=== PATIENT | female | born 1935 | race Caucasian/White ===

== ENCOUNTER 2016-11-15 07:27 | Inpatient (IN) | payer MEDICARE, OTHER ==
[~2016-11-15] VITALS: Ht 160 cm; Wt 55.1 kg
--- NOTE | ~2016-11-15 | PR ---
[place], [place] PROGRESS NOTE NAME: RICKEY BOSS [facility] #: [id number] UNIT #: [id number] ROOM: 411 DOCTOR: MEI PAULSON MD BIRTHDATE: [birth year] DOS: CARDIOLOGY PROGRESS NOTE SUBJECTIVE: The patient was seen at her bedside today with family in attendance. She states that she has continued to have episodic weakness in the hospital. Review of her monitor strip shows sinus rhythm throughout. She has not had any significant tachy or donna arrhythmias nor has she had any pauses. She still has pain in her left chest, which is easily reproducible by palpation of her anterior chest and shoulder. Troponin levels have been unremarkable. PHYSICAL EXAMINATION: VITAL SIGNS: Today, her pulse is 72 and regular, blood pressure 138/55. She is afebrile. NECK: Supple. She has no jugular distention. Carotids are full. LUNGS: Respirations are unlabored. Her chest is clear to auscultation and percussion. She has no presacral edema. HEART: Has a regular rhythm without murmurs, rubs or gallops. ABDOMEN: Soft and normally active without masses, organomegaly or bruits. EXTREMITIES: Showed no edema. IMPRESSION: 1. Atypical chest pain, most likely musculoskeletal in origin. 2. Episodic weakness. Workup in progress. 3. Hypoglycemia prior to admission. Etiology not known. PLAN: We will await her echocardiogram. No other cardiac evaluation is planned at this time. I did discuss the possibility of a stress test with the patient, but she preferred to await the results of other testings first. I thank the hospitalist group for asking our advice regarding her care. MEI PAULSON MD CM:PNTRANS [phone] MEI PAULSON MD 11/17/16 0257 interface
--- NOTE | ~2016-11-15 | CON ---
[place], [place] RE[id number] UN[facility] #: [id number] ROOM: 411 DOCTOR: MEI PAULSON MD BIRTHDATE: [birth year] DOS: 11/15/2016 CARDIOLOGY CONSULTATION REASON FOR CONSULTATION: Chest pain. HISTORY OF PRESENT ILLNESS: The patient is an 81-year-old woman who has no previously documented history of heart disease. She was hospitalized in July 2016 with generalized weakness and inability to ambulate, associated with nausea, vomiting, dehydration and dysphagia. She was hydrated and improved, but still did not regain her normal strength. She was discharged to a long term and eventually to her home but continues to feel poorly. She states that she does have episodes where she becomes very weak and often confused. She was seen at her primary care office where she was noted to be hypoglycemic, even though she is not on any diabetes medications. She was started on steroids by mouth without much improvement. Today, she stated that she felt bad "all over." She states that everything hurt in addition to which she began having facial flushing, elevated blood pressure, tingling of her lips and swelling of her tongue with difficulty swallowing. She also had abdominal and chest pains. She told the ER staff that she felt that her left leg and left arm were heavy and weak. Her electrocardiogram showed no evidence for an acute myocardial infarction, but there was a concern that this could represent acute coronary ischemia. She was placed on nitroglycerin and hospitalized. Since she was hospitalized she states that she does feel somewhat better, although she still feels generally weak. Her cardiac biomarkers show normal total CK and MB levels. Her troponin is measurable but not above acceptable limits. PAST MEDICAL HISTORY: 1. Anxiety. 2. History of diverticulitis. 3. Generalized weakness. 4. Gastroesophageal reflux disease. 5. Hyperlipidemia. 6. 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 7. History of appendectomy, hysterectomy, oophorectomy, and spinal surgery. REVIEW OF SYSTEMS: The patient denies diplopia. She feels generally weak, but denies focal weakness. She denies loss of consciousness. She denies fevers, chills or sweats. She thinks she is losing weight because her appetite is poor. She denies orthopnea or PND. She does note that she occasionally gets a pounding in her head, which she associates with high blood pressure. She does get a pounding in her chest, but denies true chest pain. She does have chest wall tenderness. She denies bleeding from her stools or urine. She denies any peripheral edema. She denies any skin rashes. The remainder of the review of systems is negative except as noted above. MEDICATIONS: Prior to admission, Flovent 2 puffs b.i.d., Fosamax 35 mg weekly, calcium carbonate 500 mg b.i.d., vitamin D3 of 1000 units daily, hydrocodone with acetaminophen q.4 hours p.r.n., lorazepam 0.5 mg t.i.d., meloxicam 7.5 mg daily, Centrum Silver 1 tablet daily, omega 3 fish oil 1000 mg b.i.d., [place], [place] REPORT OF CONSULTATION NAME: RICKEY BOSS UNIT #: [id number] ROOM: [facility] DOCTOR: MEI PAULSON MD BIRTHDATE: [birth year] omeprazole 40 mg daily, polyethylene glycol 17 g b.i.d., pravastatin 10 mg at bedtime, Florastor 250 mg daily, tramadol 50 mg t.i.d. and conjugated estrogens per vagina one applicator weekly. ALLERGIES: PENICILLINS, DULOXETINE, LATEX AND PREDNISONE. FAMILY HISTORY: Her mother at age 60 of natural causes. Her father in his 60s of heart failure. SOCIAL HISTORY: The patient does not consume alcohol and has never smoked. PHYSICAL EXAMINATION: GENERAL: The patient is an anxious appearing white female who is awake, alert and oriented. VITAL SIGNS: Pulse is 68 and regular; blood pressure is 119/56. She is afebrile. She weighs 55.1 kilograms with a body mass index of 21.5 HEENT: Normocephalic, atraumatic. Extraocular muscles are intact. Sclerae are clear. Pupils are equal, round and reactive to light. The oral mucosa is moist. Tongue is midline. NECK: Supple. She has no jugular distention. Carotids are full. I heard no bruits. She had no neck or supraclavicular masses and no thyromegaly. RESPIRATORY: Respirations are unlabored. CHEST: Her chest is clear to auscultation and percussion. She has no presacral edema or chest wall tenderness. CARDIOVASCULAR: Her heart has a regular rhythm. She has no murmurs, rubs or gallops. The PMI is not displaced. There is no precordial heaves, lift or thrill. Palpation of her left anterior chest does reproduce some of her pains and she does have a tender spot in the fourth intercostal space on the left side of her chest. ABDOMEN: Soft and normally active without masses, organomegaly or bruits. EXTREMITIES: Showed no edema. Peripheral pulses are easily palpated in her feet bilaterally. LABORATORY DATA: I reviewed her electrocardiogram, which shows sinus rhythm with nonspecific ST and T-wave changes, but no acute ST elevation or depression. Serial troponin levels have been 0.015, 0.041 and 0.028. TSH in July was normal. Her total cholesterol in July was 137 with an LDL of 50 and an HDL of 64, total protein is 7.9 with albumin 4.0. Hemoglobin is 14.5 with hematocrit 42.7. There are 11,300 white cells and 320,000 platelets present. Sodium is 140, potassium 4.0, BUN 17, creatinine 0.68, sugar is 107 in the hospital, her A1c is 5.7. IMPRESSIONS: 1. Atypical chest pain. The patient was sore, "all over" and did not specifically complain of chest pain on admission. She does have a sore spot on her left anterior chest, which reproduces some of her pains. Her electrocardiogram shows no acute changes and her cardiac biomarkers are unremarkable. 2. History of malnutrition. 3. Episodic hypertension, possibly related to stress and her recent steroid [place], [place] RE[id number] UNIT #: [id number] ROOM: 411 DOCTOR: MEI PAULSON MD BIRTHDATE: [birth year] replacement. 4. Anxiety and depression apparent on exam. PLAN: I will be reviewing further cardiac biomarkers and we will obtain an echocardiogram. If her left ventricular wall motion and systolic function are normal, I do not believe that any further cardiac testing at this time would be fruitful. I thank the hospitalist group for asking our advice regarding her care. MEI PAULSON MD CM:CONSTR:REPORT OF CONSULTATION 29 11/16/16 1613 interface
--- NOTE | ~2016-11-15 | EKG ---
[place], [place] ELECTROCARDIOGRAM REPORT NAME: RICKEY BOSS UNIT #: [id number] ROOM: 411 DOCTOR: MEI PAULSON MD BIRTHDATE: [birth year] DOS: 11/15/2016 STUDY DONE: 11/15/2016 at 0735 in the morning. Sinus rhythm at a rate of 74. Nonspecific lateral ST and T wave changes. Abnormal EKG. MEI PAULSON MD CM:EKGRPT:ELECTROCARDIOGRAM REPORT [id number] MEI PAULSON MD
--- NOTE | ~2016-11-15 | PR ---
[place], [place] PROGRESS NOTE NAME: RICKEY BOSS [facility] #: [id number] UNIT #: [id number] ROOM: 411 DOCTOR: MAXIMUS GEIGER MD BIRTHDATE: [birth year] DOS: 11/17/2016 SUBJECTIVE: The patient is sitting up in bed, does not appear in any distress, continued to feel ____ weak, having no energy. No chest heaviness, jaw pain. No symptomatic palpitation. No dizziness, lightheadedness, or near-syncope. OBJECTIVE: VITAL SIGNS: Blood pressure 120/50, heart rate 59, respiratory rate of 14, temperature 97.4. NECK: Good upstroke, no bruit. HEART: S1, S2 with no rub. CHEST: With significant reproducible chest pain at the left side over the fourth and fifth ribs. ABDOMEN: Soft, nontender, present bowel sounds. No masses, no bruits. EXTREMITIES: Lower extremities, no edema. Faint distal pulses. LABORATORY DATA: White count 7.4, hemoglobin 11.7. Potassium 4.0, creatinine 0.5. AST is 20. Troponin less than 0.015. CPK-MB 2.4, CK is 25. Both are negative x 4. T4 of 1.03. Cortisol 6.22. TSH is 3.03. ASSESSMENT AND PLAN: Presentation with weakness that appears to have no specific cardiac complaints, today the patient has significant chest pain over the left breast and fourth and fifth ribs. Case discussed with Dr. Gonzáles who was present during this examination and further investigation with a left rib series is advised. The patient already scheduled by Dr. Payne for echo. Today, she agreed for a walking stress test which both can be scheduled as an outpatient should the patient deemed to be discharged over the weekend. Early follow up with Dr. Payne within 1-2 weeks as an outpatient is advised upon discharge. No further recommendation from the heart point of view. Consider, though, a sed rate along with GLORY to complete the workup. MAXIMUS GEIGER MD CM:PNTRANS [id number] MAXIMUS GEIGER MD 11/17/16 1616 interface
[~2016-11-15 07:27] MED LIST: ACETAMINOPHEN-H1 TA2 PO; ALENDRONATE SOD35 M1 PO; ATIVAN1 MG PO; CENTRUM SILVER1 EACH PO; CEPHALEXIN500 M1 PO; CODEINE-GUAIFE120 ML PO; FISH OIL500 M1 PO; FISH OIL500 M2 PO; FLOVENT HFA10.6 GM IH; GUAIFENESIN W PO; LEVAQUIN500 M2 PO; MOBIC7.5 MG PO; OYSTER SHELL 51 EACH PO; PAZEO2.5 ML OP; POLYETHYLE17 GM/Dose PO; PRAVASTATIN SOD10 MG PO; PREMARIN V0.625 MG/G V; PRILOSEC40 M1 PO; PROAIR HFA8.5 GM INH; PROBIOTIC250 MG PO; PYRIDIUM100 MG PO; TRAMADOL HCL50 MG PO; [UNRECOGNIZED DRUG - OTHER] PO
[2016-11-15 07:38] VITALS: BP 220/104
[2016-11-15] MEDS ORDERED: PAZEO2.5 ML OP (07:57)
[2016-11-15] MEDS ORDERED: CENTRUM SILVER1 EACH PO (07:57)
[2016-11-15] MEDS ORDERED: FISH OIL 1,001000 MG PO (07:58)
[2016-11-15] MEDS ORDERED: FLORASTOR250 MG PO (07:59)
[2016-11-15] MEDS ORDERED: FLOVENT HFA10.6 GM IH (07:59)
[2016-11-15] MEDS ORDERED: Oscal,Oyster S500 MG PO (08:00)
[2016-11-15] MEDS ORDERED: PRILOSEC20 M1 PO (08:00)
[2016-11-15] MEDS ORDERED: PREMARIN V0.625 MG/G V (08:00)
[2016-11-15] MEDS ORDERED: PRAVACHOL20 MG PO (08:02)
[2016-11-15] MEDS ORDERED: MIRALAX POWDER255 G1 PO (08:02)
[2016-11-15] MEDS ORDERED: FOSAMAX70 M1 PO (08:03)
[2016-11-15] MEDS ORDERED: HYDROCODONE BIT1 T11 PO (08:04)
[2016-11-15] MEDS ORDERED: ULTRAM50 MG PO (08:04)
[2016-11-15] MEDS ORDERED: MOBIC7.5 MG PO (08:04)
[2016-11-15] MEDS ORDERED: ATIVAN0.5 MG PO (08:04)
[2016-11-15] MEDS ORDERED: PYRIDIUM100 MG PO (08:05)
[2016-11-15] MEDS ORDERED: GUAIFEN/CODEIN120 ML PO (08:06)
[2016-11-15] MEDS ORDERED: VITAMIN D31000 IU PO (08:07)
[2016-11-15 08:19] LABS: BASO % 0.2 % (0.0-1.0); HEMATOCRIT 42.7 % (37.0-47.0); HEMOGLOBIN 14.5 g/dl (12.0-16.0); IG # 0.1 10*3/uL (0.0-0.1); LYMPH # 1.4 10*3/uL (1.3-4.4); MEAN CELL VOLUME 92.6 fl (81.0-99.0); MEAN CORPUSCULAR HGB 31.5 pg (27.0-31.0); MONO # 0.9 10*3/uL (0.1-1.0); MONO % 7.8 % (3.0-9.0); NEUT % 79.1 % (47.0-73.0); PLATELET COUNT AUTOMATED 320 10*3/uL (130-400); RED BLOOD COUNT 4.61 10*6/uL (4.10-5.10); RED CELL DISTRI WIDTH 12.9 % (0-14.5); WHITE BLOOD COUNT 11.3 10*3/uL (4.8-10.8)
[2016-11-15 08:36] LABS: ALKALINE PHOSPHATASE 90 U/L (45-117); BILIRUBIN, TOTAL 0.3 mg/dl (0.2-1.0); BUN 17 mg/dl (7-24); CARBON DIOXIDE 27 mmol/L (21-32); CHLORIDE 102 mmol/L (98-107); CPK 39 U/L (26-192); EST GLOM FILT AFRICAN AMERICAN > 60 ml/min; GLUCOSE 107 mg/dL (65-99); SGOT/AST 20 IU/L (3-35); SGPT/ALT 20 U/L (12-78); SODIUM 140 mmol/L (136-145); TOTAL PROTEIN 7.9 gm/dL (6.4-8.2)
[2016-11-15 08:38] LABS: TROPONIN I < 0.015 ng/ml (<0.045)
[2016-11-15 09:54] VITALS: BP 168/70
[2016-11-15 10:41] LABS: BILIRUBIN NEGATIVE (NEGATIVE); BLOOD NEGATIVE (NEGATIVE); CLARITY CLEAR (CLEAR); COLOR YELLOW (YELLOW); GLUCOSE NEGATIVE (NEGATIVE); KETONE NEGATIVE (NEGATIVE); LEUKO ESTERASE NEGATIVE (NEGATIVE); NITRITE NEGATIVE (NEGATIVE); PH 7.5 (5.0-9.0); PROTEIN NEGATIVE (NEGATIVE); SPECIFIC GRAVITY 1.015 (1.005-1.030); UROBILINOGEN 0.2 E.U./dl (0.2-1.0)
[2016-11-15 10:45] VITALS: BP 144/62
[2016-11-15 10:49] LABS: BACTERIA 1+
[2016-11-15 10:50] LABS: EPITHELIAL CELLS 0-2; RBC 0-2 rbc/hpf (0-2); URINE REFLEX COMMENT NO (NO); WBC 0-2 wbc/hpf (0-5)
[2016-11-15 12:00] VITALS: BP 144/61; BP 144/62
[2016-11-15 12:11] LABS: CKMB 1.8 ng/ml (0.5-3.6); TROPONIN I 0.041 ng/ml (<0.045)
[2016-11-15 16:00] VITALS: BP 119/56
[2016-11-15 18:12] LABS: CKMB 1.8 ng/ml (0.5-3.6); TROPONIN I 0.028 ng/ml (<0.045)
[2016-11-16] VITALS: BP 125/51
[2016-11-16 00:46] LABS: CKMB 2.4 ng/ml (0.5-3.6); TROPONIN I 0.019 ng/ml (<0.045)
[2016-11-16 06:27] LABS: BASO % 0.4 % (0.0-1.0); EOS # 0.1 10*3/uL (0.0-0.4); EOS % 1.9 % (1.0-4.0); LYMPH # 2.8 10*3/uL (1.3-4.4); LYMPH % 37.6 % (27.0-41.0); MEAN CELL VOLUME 95.5 fl (81.0-99.0); MEAN CORPUSCULAR HGB CONC 32.5 g/dl (33.0-37.0); MONO % 12.8 % (3.0-9.0); NEUT # 3.5 10*3/uL (2.3-7.9); NEUT % 46.9 % (47.0-73.0); PLATELET COUNT AUTOMATED 255 10*3/uL (130-400); RED BLOOD COUNT 3.77 10*6/uL (4.10-5.10); RED CELL DISTRI WIDTH 13.2 % (0-14.5); WHITE BLOOD COUNT 7.4 10*3/uL (4.8-10.8)
[2016-11-16 06:29] LABS: HEMOGLOBIN 11.7 g/dl (12.0-16.0)
[2016-11-16 07:04] LABS: INTERNATIONAL NORM RATIO 0.9 (2.0-3.5)
[2016-11-16 07:05] LABS: BUN 18 mg/dl (7-24); CARBON DIOXIDE 33 mmol/L (21-32); CHLORIDE 102 mmol/L (98-107); EST GLOM FILT AFRICAN AMERICAN > 60 ml/min; GLUCOSE 78 mg/dL (65-99); SODIUM 140 mmol/L (136-145)
[2016-11-16 07:10] LABS: FOLIC ACID 20.05 ng/mL (>5.38)
[2016-11-16 07:14] LABS: FREE T4 1.03 ng/dl (0.76-1.46)
[2016-11-16 07:22] LABS: TROPONIN I < 0.015 ng/ml (<0.045)
[2016-11-16 08:00] VITALS: BP 114/62; BP 158/73
[2016-11-16 10:08] LABS: HEMOGLOBIN A1c 5.9 % (4.8-5.6)
[2016-11-16 12:00] VITALS: BP 138/55
[2016-11-16 16:00] VITALS: BP 102/78
[2016-11-16 20:00] VITALS: BP 140/55
[2016-11-17] VITALS: BP 138/50
[2016-11-17 08:00] VITALS: BP 120/50
[2016-11-17 12:00] VITALS: BP 126/56
[2016-11-17 12:41] LABS: BUN 15 mg/dl (7-24); CARBON DIOXIDE 31 mmol/L (21-32); CHLORIDE 100 mmol/L (98-107); EST GLOM FILT AFRICAN AMERICAN > 60 ml/min; GLUCOSE 81 mg/dL (65-99); SODIUM 140 mmol/L (136-145)
[2016-11-17 16:00] VITALS: BP 120/79
== END 2016-11-17 16:45 | disposition home or self-care (01) | DRG 206 ==
LOC: ED 07:27 → EDHOLD 09:39 → 4E 09:39
PROVIDERS: Emergency Medicine; Internal Medicine
DX: M94.0 Chondrocostal junction syndrome [Tietze] (principal); F32.9 Major depressive disorder, single episode, unspecified; E16.2 Hypoglycemia, unspecified; K21.9 Gastro-esophageal reflux disease without esophagitis; R27.0 Ataxia, unspecified; M81.0 Age-related osteoporosis without current pathological fracture; M19.90 Unspecified osteoarthritis, unspecified site; E78.5 Hyperlipidemia, unspecified; R07.89 Other chest pain; F41.9 Anxiety disorder, unspecified; Z68.21 Body mass index [BMI] 21.0-21.9, adult; Z90.49 Acquired absence of other specified parts of digestive tract; Z90.710 Acquired absence of both cervix and uterus; Z90.721 Acquired absence of ovaries, unilateral; Z82.49 Family history of ischemic heart disease and other diseases of the circulatory system; Z88.8 Allergy status to other drugs, medicaments and biological substances; Z88.0 Allergy status to penicillin; Z91.040 Latex allergy status; Z79.899 Other long term (current) drug therapy

== ENCOUNTER → 2016-11-26 | Outpatient (CLI) | payer MEDICARE, OTHER ==
[~2016-11-26] MED LIST changes: +ATIVAN0.5 MG PO; +FISH OIL 1,001000 MG PO; +FLORASTOR250 MG PO; +FOSAMAX70 M1 PO; +GUAIFEN/CODEIN120 ML PO; +HYDROCODONE BIT1 T11 PO; +MIRALAX POWDER255 G1 PO; +Oscal,Oyster S500 MG PO; +PRAVACHOL20 MG PO; +PRILOSEC20 M1 PO; +ULTRAM50 MG PO; +VITAMIN D31000 IU PO
--- NOTE | ~2016-11-26 | ST ---
[place], [place] EXERCISE STRESS TEST REPORT NAME: RICKEY BOSS [facility] #: [id number] UNIT #: [id number] ROOM: DOCTOR: MEI PAULSON MD BIRTHDATE: [birth year] DOS: 11/26/2016 EXERCISE MYOCARDIAL PERFUSION STUDY INDICATIONS: Atypical chest pain, episodic weakness. PROCEDURE: The patient exercised on a full Ifeanyi protocol. She stated on the first stage of a Ifeanyi protocol for 3 minutes 30 seconds and achieved a maximum heart rate of 138, which represented 103% of her maximum predicted heart rate at a workload of 5 mets. She stopped for fatigue. She did not have any chest pain. The resting electrocardiogram showed sinus rhythm and was a normal tracing. No diagnostic changes occurred with exercise or in recovery. One minute prior to completion of exercise protocol. She was given radionuclide intravenously. IMPRESSION: 1. Adequate exercise capacity without chest pain or diagnostic electrocardiographic changes. 2. Radionuclide injected. Please see the separate imaging report for further details of the patient's stress test results. MEI PAULSON MD CM:STRESS:EXERCISE STRESS TEST REPORT [id number] MEI PAULSON MD
== END | disposition home or self-care (01) ==
LOC: CARD 01:44
DX: I34.0 Nonrheumatic mitral (valve) insufficiency (principal); R07.89 Other chest pain; I07.1 Rheumatic tricuspid insufficiency; R53.1 Weakness

== ENCOUNTER → 2016-12-03 | Outpatient (CLI) | payer MEDICARE, OTHER | END | disposition home or self-care (01) | LOC: CT 11-23 11:00 | DX: J44.9 Chronic obstructive pulmonary disease, unspecified (principal); R91.1 Solitary pulmonary nodule; R06.02 Shortness of breath ==

== ENCOUNTER → 2017-03-21 | Outpatient (CLI) | payer MEDICARE, OTHER | END | disposition home or self-care (01) | LOC: MAMMO 12:46 | DX: Z12.31 Encounter for screening mammogram for malignant neoplasm of breast (principal) ==

== ENCOUNTER → 2017-03-26 | Outpatient (CLI) | payer MEDICARE, OTHER ==
[2017-03-26 08:46] LABS: ALBUMIN 3.7 gm/dl (3.1-4.5); ALKALINE PHOSPHATASE 106 U/L (45-117); BILIRUBIN, TOTAL 0.2 mg/dl (0.2-1.0); BUN 11 mg/dl (7-24); CARBON DIOXIDE 31 mmol/L (21-32); CHLORIDE 101 mmol/L (98-107); EST GLOM FILT AFRICAN AMERICAN > 60 ml/min; FREE T4 0.92 ng/dl (0.76-1.46); GLUCOSE 85 mg/dL (65-99); POTASSIUM 3.8 mmol/L (3.5-5.1); SGOT/AST 21 IU/L (3-35); SGPT/ALT 22 U/L (12-78); SODIUM 141 mmol/L (136-145); TOTAL PROTEIN 7.5 gm/dL (6.4-8.2)
[2017-03-26 09:01] LABS: HEMOGLOBIN A1c 5.7 % (4.8-5.6)
== END | disposition home or self-care (01) ==
LOC: LAB 07:39
PROVIDERS: Physician Assistant
DX: E16.2 Hypoglycemia, unspecified (principal); R53.83 Other fatigue

== ENCOUNTER 2018-01-12 22:00 | Inpatient (IN) | payer MEDICARE, OTHER ==
[~2018-01-12] VITALS: Ht 160 cm; Wt 51.1 kg
[2018-01-12 22:00] VITALS: BP 188/83
[2018-01-12 23:04] VITALS: BP 151/63
[2018-01-12 23:04] LABS: BASO % 0.8 % (0.0-1.0); EOS # 0.1 10*3/uL (0.0-0.4); EOS % 2.7 % (1.0-4.0); HEMATOCRIT 36.1 % (37.0-47.0); HEMOGLOBIN 12.5 g/dl (12.0-16.0); LYMPH # 1.1 10*3/uL (1.3-4.4); LYMPH % 21.9 % (27.0-41.0); MEAN CELL VOLUME 90.3 fl (81.0-99.0); MEAN CORPUSCULAR HGB 31.3 pg (27.0-31.0); MEAN CORPUSCULAR HGB CONC 34.6 g/dl (33.0-37.0); MEAN PLATELET VOLUME 13.6 fl (9.6-12.3); MONO # 0.7 10*3/uL (0.1-1.0); MONO % 13.8 % (3.0-9.0); NEUT # 3.2 10*3/uL (2.3-7.9); NEUT % 60.6 % (47.0-73.0); PLATELET COUNT AUTOMATED 183 10*3/uL (130-400); RED CELL DISTRI WIDTH 11.9 % (0-14.5); WHITE BLOOD COUNT 5.2 10*3/uL (4.8-10.8)
[2018-01-12 23:14] LABS: ACT PARTIAL THROMBO TIME 28.3 SECONDS (20.8-31.5)
[2018-01-12 23:21] LABS: ALBUMIN 3.9 gm/dl (3.1-4.5); ALKALINE PHOSPHATASE 93 U/L (45-117); BUN 6 mg/dl (7-24); CHLORIDE 94 mmol/L (98-107); CREATININE 0.72 mg/dL (0.55-1.02); POTASSIUM 3.7 mmol/L (3.5-5.1); SGOT/AST 20 IU/L (3-35); SGPT/ALT 19 U/L (12-78); SODIUM 127 mmol/L (136-145); TOTAL PROTEIN 7.2 gm/dL (6.4-8.2)
[2018-01-12 23:23] LABS: TROPONIN I < 0.015 ng/ml (<0.045)
[2018-01-13] VITALS (7 sets, daily range): BP systolic 121–157; BP diastolic 46–65
[2018-01-13] MEDS ORDERED: AZO CRANBERRY1 EACH PO (02:32)
[2018-01-13 07:40] LABS: BUN 4 mg/dl (7-24); CHLORIDE 108 mmol/L (98-107); CREATININE 0.63 mg/dL (0.55-1.02)
[2018-01-13 07:40] LABS: BASO # 0.1 10*3/uL (0.0-0.1); EOS # 0.2 10*3/uL (0.0-0.4); EOS % 4.5 % (1.0-4.0); HEMATOCRIT 34.9 % (37.0-47.0); HEMOGLOBIN 11.6 g/dl (12.0-16.0); LYMPH # 1.3 10*3/uL (1.3-4.4); LYMPH % 25.9 % (27.0-41.0); MEAN CORPUSCULAR HGB 31.1 pg (27.0-31.0); MEAN CORPUSCULAR HGB CONC 33.2 g/dl (33.0-37.0); MEAN PLATELET VOLUME 12.7 fl (9.6-12.3); MONO # 0.7 10*3/uL (0.1-1.0); MONO % 14.3 % (3.0-9.0); NEUT # 2.7 10*3/uL (2.3-7.9); NEUT % 54.1 % (47.0-73.0); PLATELET COUNT AUTOMATED 184 10*3/uL (130-400); RED BLOOD COUNT 3.73 10*6/uL (4.10-5.10); RED CELL DISTRI WIDTH 12.2 % (0-14.5); WHITE BLOOD COUNT 4.9 10*3/uL (4.8-10.8)
[2018-01-13 07:41] LABS: MEAN CELL VOLUME 93.6 fl (81.0-99.0)
[2018-01-13 07:45] LABS: CHOLESTEROL 201 mg/dL (<200); HDL CHOLESTEROL 51 mg/dl (40-60); LDL CHOLESTEROL 127 mg/dL (9-159); PHOSPHOROUS 2.7 mg/dL (2.5-4.9); TRIGLYCERIDES 114 mg/dl (<150); VLDL CHOLESTEROL 23 mg/dL (6-40)
[2018-01-13 08:04] LABS: SODIUM 139 mmol/L (136-145)
[2018-01-13 08:17] LABS: VITAMIN D, 25-HYDROXY 33.3 ng/mL (30-100)
[2018-01-14 00:17] VITALS: BP 143/58
[2018-01-14 08:00] VITALS: BP 130/56
[2018-01-14 12:00] VITALS: BP 126/60
[2018-01-14 16:00] VITALS: BP 141/61
[2018-01-14 20:00] VITALS: BP 156/67
[2018-01-15] VITALS: BP 146/64; BP 174/64
[2018-01-15 06:31] LABS: BASO # 0.1 10*3/uL (0.0-0.1); BASO % 1.1 % (0.0-1.0); EOS # 0.3 10*3/uL (0.0-0.4); EOS % 6.1 % (1.0-4.0); HEMATOCRIT 34.4 % (37.0-47.0); HEMOGLOBIN 11.3 g/dl (12.0-16.0); LYMPH # 1.3 10*3/uL (1.3-4.4); LYMPH % 28.2 % (27.0-41.0); MEAN CELL VOLUME 94.2 fl (81.0-99.0); MEAN CORPUSCULAR HGB CONC 32.8 g/dl (33.0-37.0); MEAN PLATELET VOLUME 12.4 fl (9.6-12.3); MONO # 0.8 10*3/uL (0.1-1.0); MONO % 16.4 % (3.0-9.0); NEUT # 2.2 10*3/uL (2.3-7.9); PLATELET COUNT AUTOMATED 189 10*3/uL (130-400); RED BLOOD COUNT 3.65 10*6/uL (4.10-5.10); RED CELL DISTRI WIDTH 12.7 % (0-14.5); WHITE BLOOD COUNT 4.6 10*3/uL (4.8-10.8)
[2018-01-15 06:49] LABS: ALBUMIN 3.3 gm/dl (3.1-4.5); ALKALINE PHOSPHATASE 73 U/L (45-117); BUN 4 mg/dl (7-24); CHLORIDE 105 mmol/L (98-107); CREATININE 0.46 mg/dL (0.55-1.02); POTASSIUM 3.3 mmol/L (3.5-5.1); SGOT/AST 19 IU/L (3-35); SGPT/ALT 14 U/L (12-78); SODIUM 141 mmol/L (136-145); TOTAL PROTEIN 6.2 gm/dL (6.4-8.2)
[2018-01-15 08:00] VITALS: BP 157/78
[2018-01-15] MEDS ORDERED: GOOD NEIGHBOR L10 MG PO (08:14)
[2018-01-15] MEDS ORDERED: FLAGYL500 MG PO (08:14)
[2018-01-15 09:50] VITALS: BP 170/91
[2018-01-15] MEDS ORDERED: MAG-AL PLUS 3030 ML PO (10:38)
== END 2018-01-15 12:29 | disposition home or self-care (01) | DRG 392 ==
LOC: ED 22:00 → EDHOLD 01-13 01:26 → 4E 01-13 01:26
PROVIDERS: Registered Nurse; Student in an Organized Health Care Education/Training Program
DX: K52.9 Noninfective gastroenteritis and colitis, unspecified (principal); E67.8 Other specified hyperalimentation; E87.1 Hypo-osmolality and hyponatremia; K21.9 Gastro-esophageal reflux disease without esophagitis; F41.9 Anxiety disorder, unspecified; M19.90 Unspecified osteoarthritis, unspecified site; E78.2 Mixed hyperlipidemia; J45.909 Unspecified asthma, uncomplicated; E83.51 Hypocalcemia; G89.29 Other chronic pain; M54.9 Dorsalgia, unspecified; Z88.0 Allergy status to penicillin; Z88.8 Allergy status to other drugs, medicaments and biological substances; Z91.040 Latex allergy status; Z79.899 Other long term (current) drug therapy; Z90.710 Acquired absence of both cervix and uterus; Z90.49 Acquired absence of other specified parts of digestive tract; Z90.721 Acquired absence of ovaries, unilateral; Z82.49 Family history of ischemic heart disease and other diseases of the circulatory system; Z83.3 Family history of diabetes mellitus; Z80.9 Family history of malignant neoplasm, unspecified; Z87.01 Personal history of pneumonia (recurrent)